=== PATIENT | male | born 1985 | race African-American/Black ===

== ENCOUNTER 2019-04-21 03:16 | Emergency (ER) | payer SELFPAY ==
[~2019-04-21] VITALS: Ht 165.1 cm; Wt 75.7 kg
[2019-04-21 03:21] VITALS: BP 151/97
[2019-04-21] MEDS ORDERED: HYDROCORTISONE CRM 1%, 30GM TP ONE (04:00)
== END 2019-04-21 04:17 | disposition home or self-care (01) ==
LOC: ED 03:55
DX: T78.49XA Other allergy, initial encounter (principal); X58.XXXA Exposure to other specified factors, initial encounter
CPT/HCPCS: 99282

== ENCOUNTER 2019-05-05 22:28 | Emergency (ER) | payer MEDICAID ==
[~2019-05-05] VITALS: Ht 165.1 cm; Wt 72.8 kg
[2019-05-05 22:29] VITALS: BP 173/107
== END 2019-05-05 23:01 | disposition home or self-care (01) ==
LOC: ED 23:00
DX: Z20.2 Contact with and (suspected) exposure to infections with a predominantly sexual mode of transmission (principal)
CPT/HCPCS: 87491; 87591; 99283

== ENCOUNTER 2019-09-16 06:21 | Emergency (ER) | payer MEDICAID | END 2019-09-16 06:27 | LOC: ED 06:21 | DX: R53.1 Weakness (principal); Z53.21 Procedure and treatment not carried out due to patient leaving prior to being seen by health care provider ==